=== PATIENT | female | born 1985 | race Native Hawaiian/Other Pacific Islander ===

== ENCOUNTER 2020-05-01 10:32 | Emergency (ER) | payer OTHER, SELFPAY ==
[2020-05-01] VITALS (9 sets, daily range): BP systolic 132–180; BP diastolic 77–118; PULSE 80–112; RESP 18; TEMP 36.4; O2SAT 39–100; BMI 25.4
--- NOTE | 2020-05-01 12:09 | ED.DENTAL ---
HPI - Dental/Oral <EVERTON Thomson - Last Filed: 05/01/20 14:36> General Chief complaint: Dental/Oral Stated complaint: swollen right jaw/cheek Time Seen by Provider: 05/01/20 11:34 Source: patient Mode of arrival: Ambulatory Limitations: no limitations History of Present Illness HPI Narrative: This is a 34 year female, nonsmoker, who denies chronic medical condition presents to ED with chief complain of right jawline swelling and pain which started this yesterday. Patient reports difficulty opening her mouth due to pain and eating. She reports subjective fever burning and sweaty last night and had taken Tylenol for this. Patient denies difficulty breathing or swallowing, sore throat, dental pain, ear pain, drainage from mouth, dental caries. Patient remembers had mom's during elementary school. Patient's primary care physician is located in [facility] and does not have dentist at this time since she moved to the area recently. Related Data Previous Rx's Medication Instructions Recorded cephalexin [Keflex] 500 mg PO Q6H 7 Days #28 cap 05/01/20 Allergies Allergy/AdvReac Type Severity Reaction Status Date / Time No Known Drug Allergies Allergy Verified 05/01/20 13:43 Review of Systems <EVERTON Thomson - Last Filed: 05/01/20 14:36> Review of Systems Narrative: General: See HPI HEENT: See HPI Respiratory: Denies dyspnea, cough, wheezing, hemoptysis, sputum. Cardiovascular: Denies chest pain, palpitations, orthopnea, edema. Gastrointestinal: Denies nausea, vomiting, abdominal pain, diarrhea, constipation, melena. : Denies dysuria, frequency, incontinence, hematuria, urinary retention. Musculoskeletal: Denies weakness, joint pain or bony pain. Skin: Denies rash, skin lesions, or other. Neurologic: Denies weakness, headache, numbness, change in speech, confusion, seizures, incoordination. Psychiatric: No concerning psychosocial issues. 12-point review of systems is negative except for those stated above. Patient History <EVERTON Thomson - Last Filed: 05/01/20 14:36> Surgical History History of (Acute) Social History Smoking Status: Never smoker Smoking Status: Never smoker alcohol intake frequency: 0-2 drinks per day Exam <EVERTON Thomson - Last Filed: 05/01/20 14:36> Narrative Exam Narrative: GEN: Alert, oriented x 3, well nourished, and in no acute distress. Head: Normal cephalic, atraumatic. No scalp or temporal tenderness, palpable mass or rash. EYES: Pupils are equal, round, and reactive to light and accommodation. Extraocular muscles are intact bilaterally. There is no subconjunctival hemorrhage, exudate and sclera non-icteric. ENT: Bilateral auditory canals and tympanic membranes clear. Hearing grossly intact. Nose without bleeding, purulent discharge or deviation. Right side face swelling with warmth to palpate. Mucous membrane moist, no mucosal lesion. Throat without erythema, tonsillar hypertrophy or exudate. Uvula in midline, airway patent. Neck: Trachea in midline. No JVD, non-tender. Right anterior cervical lymph nodes swelling. No thyroid megaly. Supple, non-tender and no meningeal signs but reports pain in right-sided neck with rotation of her neck. CARDIAC: Normal regular rate and rhythm without murmurs, gallops, or rubs. No chest wall tenderness. No peripheral edema, cyanosis or pallor. Capillary refill is less than 2 seconds. RESPIRATORY: Lungs are clear to auscultate bilaterally. No cough, wheezes, rales, or rhonchi. No stridor, respiratory distress, increase work of breathing, or accessary muscle used. ABD: Abdomen soft, nontender and non-distended. No guarding or rebound tenderness to palpate. Bowel sounds are normal in all 4 quadrants. There is no palpable masses or organomegaly. EXT: Full painless ROM of all extremities with no loss of sensation, strength, effusion or edema. SKIN: Warm, dry, normal color for patient. No erythema, lesions or rash over visible areas. BACK: Nontender without deformity or crepitance. No flank tenderness. NEUROLOGICAL: Alert and oriented to place, time and person. Sensation and motor function intact bilaterally. No facial droops, dysphasia. PSYCHIATRIC: Good judgement and reason, without hallucinations, abnormal affect or abnormal behaviors during the examination. Patient is not suicidal. Initial Vital Signs Initial Vital Signs: Vital Signs Temperature 97.6 F 05/01/20 10:40 Pulse Rate 112 H 05/01/20 10:40 Respiratory Rate 18 05/01/20 10:40 Blood Pressure 180/118 H 05/01/20 10:40 Pulse Oximetry 98 05/01/20 10:40 <Aurora Orellana DO - Last Filed: 05/02/20 07:27> Initial Vital Signs Initial Vital Signs: Vital Signs Temperature 97.6 F 05/01/20 10:40 Pulse Rate 112 H 05/01/20 10:40 Respiratory Rate 18 05/01/20 10:40 Blood Pressure 180/118 H 05/01/20 10:40 Pulse Oximetry 98 05/01/20 10:40 Scores <EVERTON Thomson - Last Filed: 05/01/20 14:36> qSOFA Altered Mental Status (GCS <15): No Respiratory rate greater than/equal to 22: No Systolic blood pressure less than or equal to 100: No qSOFA Total: 0 0-1 Not High Risk 1-3 High risk Course <EVERTON Thomson - Last Filed: 05/01/20 14:36> Orders Ordered: Discontinued Medications Cephalexin HCl (Keflex) 500 mg PO NOW ONE Stop: 05/01/20 13:59 Last Admin: 05/01/20 14:51 Dose: 500 mg Documented by: CECELIA Sodium Chloride (Normal Saline 0.9%) 500 mls @ 1,000 mls/hr IV BOLUS ONE Stop: 05/01/20 13:02 Last Infusion: 05/01/20 14:40 Dose: 0 mls/hr Documented by: Admin: 05/01/20 13:54 Dose: 1,000 mls/hr Documented by: CECELIA Ketorolac Tromethamine (Toradol) 15 mg IV NOW ONE Stop: 05/01/20 12:34 Last Admin: 05/01/20 13:54 Dose: 15 mg Documented by: CECELIA Consultations Consultation #1: Radiologist called to inform Right parotid gland non-specific inflammation w/o stones or abcess with bilateral lymph nodes swelling. Time: 13:54 Vital Signs Vital signs: Vital Signs - 8 hr 05/01/20 10:40 05/01/20 10:58 05/01/20 11:58 Temperature 97.6 F Pulse Rate 112 H Respiratory Rate 18 Blood Pressure 180/118 H 164/87 H Pulse Oximetry 98 60 L 100 05/01/20 11:59 05/01/20 13:02 05/01/20 13:48 Temperature Pulse Rate 87 80 Respiratory Rate 18 Blood Pressure 164/87 H 137/84 Pulse Oximetry 100 89 L 39 L 05/01/20 13:49 Temperature Pulse Rate 84 Respiratory Rate Blood Pressure 166/89 H Pulse Oximetry 86 L <Aurora Orellana DO - Last Filed: 05/02/20 07:27> Orders Ordered: Discontinued Medications Cephalexin HCl (Keflex) 500 mg PO NOW ONE Stop: 05/01/20 13:59 Last Admin: 05/01/20 14:51 Dose: 500 mg Documented by: CECELIA Sodium Chloride (Normal Saline 0.9%) 500 mls @ 1,000 mls/hr IV BOLUS ONE Stop: 05/01/20 13:02 Last Infusion: 05/01/20 14:40 Dose: 0 mls/hr Documented by: Admin: 05/01/20 13:54 Dose: 1,000 mls/hr Documented by: CECELIA Ketorolac Tromethamine (Toradol) 15 mg IV NOW ONE Stop: 05/01/20 12:34 Last Admin: 05/01/20 13:54 Dose: 15 mg Documented by: CECELIA Vital Signs Vital signs: Vital Signs - 8 hr 05/01/20 10:40 05/01/20 10:58 05/01/20 11:58 Temperature 97.6 F Pulse Rate 112 H Respiratory Rate 18 Blood Pressure 180/118 H 164/87 H Pulse Oximetry 98 60 L 100 05/01/20 11:59 05/01/20 13:02 05/01/20 13:48 Temperature Pulse Rate 87 80 Respiratory Rate 18 Blood Pressure 164/87 H 137/84 Pulse Oximetry 100 89 L 39 L 05/01/20 13:49 Temperature Pulse Rate 84 Respiratory Rate Blood Pressure 166/89 H Pulse Oximetry 86 L MDM - Dental/Oral <EVERTON Thomson - Last Filed: 05/01/20 14:36> Differential Diagnosis Differential diagnosis: Likely dental caries, dental abscess and other (sialoadenitis, salivary gland stone, salivary gland abscess) Medical Records Attestation: I reviewed the patient's medical records. Lab Data Attestation: I reviewed the patient's lab results. Result diagrams: 05/01/20 13:00 05/01/20 13:00 Labs: Lab Results 05/01/20 05/01/20 05/01/20 Range/Units 13:00 13:00 13:00 WBC 14.1 H (4.5-11.0) X10^3/uL RBC 4.33 (4.0-5.2) X10^6/uL Hgb 13.0 (12.0-16.0) g/dL Hct 38.3 (36-46) % MCV 88.5 (80-100) fL MCH 30.0 (26-34) PG MCHC 33.9 (30-36) % RDW 12.6 (11.6-14.8) % Plt Count 308 (150-400) X10^3/uL Neut % (Auto) 74.4 (50-75) % Lymph % (Auto) 16.4 L (25-40) % Chilton % (Auto) 8.5 (3-14) % Eos % (Auto) 0.3 L (2-4) % Baso % (Auto) 0.4 (0-2) % Neut # (Auto) 36213 H (3949-9479) /uL Lymph # (Auto) 2300 (3575-6728) /uL [place]ilton # (Auto) 1200 H (0-900) /uL Eos # (Auto) 0 (0-450) /uL Baso # (Auto) 100 (0-100) /uL Sodium 135 L (137-145) mmol/L Potassium 4.0 (3.4-5.1) mmol/L Chloride 101 (98-107) mmol/L Carbon Dioxide 28 (22-32) mmol/L BUN 7 (7-17) mg/dL Creatinine 0.53 (0.52-1.04) mg/dL Estimated GFR > 60.0 (>60) mL/min BUN/Creatinine Ratio 13.2 (6-22) Glucose 80 (70-100) mg/dL Lactate (0.7-2.1) mmol/L Calcium 9.1 (8.4-10.2) mg/dL Procalcitonin < 0.05 (<0.5) ng/mL 07/17/20 Range/Units 13:00 WBC (4.5-11.0) X10^3/uL RBC (4.0-5.2) X10^6/uL Hgb (12.0-16.0) g/dL Hct (36-46) % MCV (80-100) fL MCH (26-34) PG MCHC (30-36) % RDW (11.6-14.8) % Plt Count (150-400) X10^3/uL Neut % (Auto) (50-75) % Lymph % (Auto) (25-40) % Chilton % (Auto) (3-14) % Eos % (Auto) (2-4) % Baso % (Auto) (0-2) % Neut # (Auto) (8382-4797) /uL Lymph # (Auto) (2331-4198) /uL Chilton # (Auto) (0-900) /uL Eos # (Auto) (0-450) /uL Baso # (Auto) (0-100) /uL Sodium (137-145) mmol/L Potassium (3.4-5.1) mmol/L Chloride (98-107) mmol/L Carbon Dioxide (22-32) mmol/L BUN (7-17) mg/dL Creatinine (0.52-1.04) mg/dL Estimated GFR (>60) mL/min BUN/Creatinine Ratio (6-22) Glucose (70-100) mg/dL Lactate 1.2 (0.7-2.1) mmol/L Calcium (8.4-10.2) mg/dL Procalcitonin (<0.5) ng/mL Imaging Data CT- Facial soft tissue: Radiologist's Impression: [address] [address] [address] Scan Report Signed Patient: Eileen Griffith [facility]#: [id number] : 1985Acct:[id number] Age/Sex: 34 / FDate of Service: 05/01/20 Loc: ED Accession Number: [id number] Procedure: CT soft tissue neck w con Ordering Provider: Richard Betancourt PROCEDURE: CT SOFT TISSUE NECK W CON INDICATIONS: Right face swelling, salivary gland stone, infection? TECHNIQUE: After the administration of intravenous contrast, 3.0 mm axial sections acquired from the sella to the aortic arch. Additional oblique axial 3.0 mm sections acquired through the pharynx. 3 mm thick coronal and sagittal reformats were generated. For radiation dose reduction, the following was used: automated exposure control. COMPARISON: None. FINDINGS: Image quality: Excellent. Lymph nodes: Enlarged bilateral level 2 neck lymph nodes are noted with largest right node measuring 1.3 centimeters and largest left node measuring 1.1 centimeters. Prominent bilateral level 1 and level 3 lymph nodes are noted which do not meet pathologic size criteria. Vessels: Visualized vasculature appears patent. Neck spaces: The oropharynx, nasopharynx, and pharynx demonstrate no mucosal lesions. The vocal cords, false vocal cords, pyriform sinuses, epiglottis, vallecula, and tongue base all appear normal. Extramucosal spaces appear unremarkable. Glands: Right parotid gland is enlarged with heterogeneous enhancement and adjacent inflammatory stranding compatible with nonspecific sialadenitis. No parotid stone are parotid duct dilatation. Left parotid gland is normal in appearance. The submandibular glands appear normal. Thyroid gland is normal. Miscellaneous: Visualized brain and orbits appear normal. Lung apices appear clear. Superficial soft tissues appear normal. Bones: No suspicious bony lesions. Visualized sinuses and mastoids appear unremarkable. IMPRESSION: 1. Nonspecific right parotid sialoadenitis. 2. Bilateral level II neck lymphadenopathy which could be reactive or neoplastic. 3. No abscess. Dictated by: Kamla Cadet MD, PhD on 05/01/2020 at 13:48 Approved by: Kamla Cadet MD, PhD on 05/01/2020 at 14:[address] [facility] Narrative Medical decision making narrative: This is a 34 year female who presents to ED with right right-sided face swelling and pain in jaw area and subjective fever since yesterday. Dental exam was within normal without obvious cavities. Mildly elevated white count of 14.1 [place] [address]. Normal lactate and procalcitonin. Slight hyponatremia 135 and patient was treated with normal saline 500 mL. Pain was managed with IV Toradol. CT test of soft tissue of face to rule out abscess for abscess or paratoid gland stones. CT indicates non specific right paratoid sialoadnitis without abscess or stones. Also noted bilateral neck II lymphadenopathy which could be reactive or neoplastic. Findings were discussed with patient and patient advised to follow-up with primary care physician if lymphadenopathy is not improving after paratoid sialoadenitis for further evaluation. Patient was treated with 1st dose of Keflex 500 mg while in ED and discharged to home with remaining 7 day course for QID dose. Return precautions were discussed with patient and advised to follow up with primary care physician next 2-3 days. Work off note provided as requested. Patient verbalized understanding in agreement with treatment plan. <Aurora Orellana, DO - Last Filed: 05/02/20 07:27> Lab Data Labs: Lab Results 05/01/20 05/01/20 05/01/20 Range/Units 13:00 13:00 13:00 WBC 14.1 H (4.5-11.0) X10^3/uL RBC 4.33 (4.0-5.2) X10^6/uL Hgb 13.0 (12.0-16.0) g/dL Hct 38.3 (36-46) % MCV 88.5 (80-100) fL MCH 30.0 (26-34) PG MCHC 33.9 (30-36) % RDW 12.6 (11.6-14.8) % Plt Count 308 (150-400) X10^3/uL Neut % (Auto) 74.4 (50-75) % Lymph % (Auto) 16.4 L (25-40) % Chilton % (Auto) 8.5 (3-14) % Eos % (Auto) 0.3 L (2-4) % Baso % (Auto) 0.4 (0-2) % Neut # (Auto) 50710 H (1949-5565) /uL Lymph # (Auto) 2300 (4256-6506) /uL Chilton # (Auto) 1200 H (0-900) /uL Eos # (Auto) 0 (0-450) /uL Baso # (Auto) 100 (0-100) /uL Sodium 135 L (137-145) mmol/L Potassium 4.0 (3.4-5.1) mmol/L Chloride 101 (98-107) mmol/L Carbon Dioxide 28 (22-32) mmol/L BUN 7 (7-17) mg/dL Creatinine 0.53 (0.52-1.04) mg/dL Estimated GFR > 60.0 (>60) mL/min BUN/Creatinine Ratio 13.2 (6-22) Glucose 80 (70-100) mg/dL Lactate (0.7-2.1) mmol/L Calcium 9.1 (8.4-10.2) mg/dL Procalcitonin < 0.05 (<0.5) ng/mL 05/01/20 Range/Units 13:00 WBC (4.5-11.0) X10^3/uL RBC (4.0-5.2) X10^6/uL Hgb (12.0-16.0) g/dL Hct (36-46) % MCV (80-100) fL MCH (26-34) PG MCHC (30-36) % RDW (11.6-14.8) % Plt Count (150-400) X10^3/uL Neut % (Auto) (50-75) % Lymph % (Auto) (25-40) % Chilton % (Auto) (3-14) % Eos % (Auto) (2-4) % Baso % (Auto) (0-2) % Neut # (Auto) (5905-6505) /uL Lymph # (Auto) (9698-6907) /uL Chilton # (Auto) (0-900) /uL Eos # (Auto) (0-450) /uL Baso # (Auto) (0-100) /uL Sodium (137-145) mmol/L Potassium (3.4-5.1) mmol/L Chloride (98-107) mmol/L Carbon Dioxide (22-32) mmol/L BUN (7-17) mg/dL Creatinine (0.52-1.04) mg/dL Estimated GFR (>60) mL/min BUN/Creatinine Ratio (6-22) Glucose (70-100) mg/dL Lactate 1.2 (0.7-2.1) mmol/L Calcium (8.4-10.2) mg/dL Procalcitonin (<0.5) ng/mL Discharge Plan Departure Patient Disposition: Home Clinical Impression: Acute sialoadenitis Discharge Date/Time: 05/01/20 14:57 Instructions: DI for Parotitis-Adult Activity Restrictions/Additional Instructions: You have been diagnosed with [right paratoid gland inflammation. Per CT test, no indications for stones or abscess. Also bilateral neck lymphadenopathy which could be reactive. Follow-up with her primary care physician if this does not improve for further evaluation. Mildly elevated white count of 14. No elevation in lactate or procalcitonin. You were medicated with IV fluid and Toradol and 1st dose of Keflex while in ED.]. What to do: *Take your medications as directed. Please complete a course of antibiotic medication Keflex 4 times a day for next 7 days. Please take [id number] Motrin/Aleve for pain and swelling. Also, you can take [id number] Tylenol in addition. You can use warm pack on affected site several times a day. *Follow up with your primary care provider in 2-3 days, call for an appointment. Let them know you were seen in the ED and that we asked you to be seen in follow up. *Return to ED if you have any new, worsening, or concerning symptoms, such as [chest pain, breathing difficulty, unable to tolerate fluids, not improving as expected next 2-3 days, or any acute concerns]. Prescriptions: New cephalexin [Keflex] 500 mg capsule 500 mg PO Q6H 7 Days Qty: 28 RF: 0 Referrals: [facility] [Outside] Stand Alone Forms: Work Release Note <Aurora Orellana, DO - Last Filed: 05/02/20 07:27> Cosign ED Attending Maggieature Attestation: I was immediately available in the department for consultation. Documentation has been reviewed. I agree with assessment and plan.
--- NOTE | 2020-05-01 12:49 | PC.NURSE ---
Two unsuccessful IV attempts. Another Rn notified and is attempting.
[2020-05-01 13:15] LABS: Add Manual Diff / Slide Review NO; Basophils Absolute Auto 100 /uL (0-100); Basophils Percent Auto 0.4 % (0-2); Eosinophils Absolute Auto 0 /uL (0-450); Eosinophils Percent Auto 0.3 % (2-4); Hematocrit 38.3 % (36-46); Lymphocytes Absolute Auto 2300 /uL (1100-4500); Lymphocytes Percent Auto 16.4 % (25-40); Mean Corpuscular HGB Conc 33.9 % (30-36); Mean Corpuscular Volume 88.5 fL (80-100); Monocytes Absolute Auto 1200 /uL (0-900); Monocytes Percent Auto 8.5 % (3-14); Neutrophils Absolute Auto 10500 /uL (1500-7000); Neutrophils Percent Auto 74.4 % (50-75); Platelet Count 308 X10^3/uL (150-400); Red Blood Cell Count 4.33 X10^6/uL (4.0-5.2); Red Cell Distribution Width 12.6 % (11.6-14.8); White Blood Cell Count 14.1 X10^3/uL (4.5-11.0)
[2020-05-01 13:20] LABS: BUN Creatinine Ratio 13.2 (6-22); Blood Urea Nitrogen 7 mg/dL (7-17); Calcium 9.1 mg/dL (8.4-10.2); Carbon Dioxide 28 mmol/L (22-32); Chloride 101 mmol/L (98-107); Estimated Glomerular Filt Rate > 60.0 mL/min (>60); Glucose 80 mg/dL (70-100); HEMOLYSIS < 15 (0-50); Lactate (Lactic Acid) 1.2 mmol/L (0.7-2.1); Sodium 135 mmol/L (137-145)
--- NOTE | 2020-05-01 13:22 | DI.CT.S_ITS ---
PROCEDURE: CT SOFT TISSUE NECK W CON INDICATIONS: Right face swelling, salivary gland stone, infection? TECHNIQUE: After the administration of intravenous contrast, 3.0 mm axial sections acquired from the sella to the aortic arch. Additional oblique axial 3.0 mm sections acquired through the pharynx. 3 mm thick coronal and sagittal reformats were generated. For radiation dose reduction, the following was used: automated exposure control. COMPARISON: None. FINDINGS: Image quality: Excellent. Lymph nodes: Enlarged bilateral level 2 neck lymph nodes are noted with largest right node measuring 1.3 centimeters and largest left node measuring 1.1 centimeters. Prominent bilateral level 1 and level 3 lymph nodes are noted which do not meet pathologic size criteria. Vessels: Visualized vasculature appears patent. Neck spaces: The oropharynx, nasopharynx, and pharynx demonstrate no mucosal lesions. The vocal cords, false vocal cords, pyriform sinuses, epiglottis, vallecula, and tongue base all appear normal. Extramucosal spaces appear unremarkable. Glands: Right parotid gland is enlarged with heterogeneous enhancement and adjacent inflammatory stranding compatible with nonspecific sialadenitis. No parotid stone are parotid duct dilatation. Left parotid gland is normal in appearance. The submandibular glands appear normal. Thyroid gland is normal. Miscellaneous: Visualized brain and orbits appear normal. Lung apices appear clear. Superficial soft tissues appear normal. Bones: No suspicious bony lesions. Visualized sinuses and mastoids appear unremarkable. IMPRESSION: 1. Nonspecific right parotid sialoadenitis. 2. Bilateral level II neck lymphadenopathy which could be reactive or neoplastic. 3. No abscess. Dictated by: Kamla Cadet MD, PhD on 05/01/2020 at 13:48 Approved by: Kamla Cadet MD, PhD on 05/01/2020 at 14:01
[2020-05-01 13:44] LABS: Procalcitonin < 0.05 ng/mL (<0.5)
[2020-05-01] MEDS: SODIUM CHLORIDE 0.9% 500 ML 1000 ML IV (13:54)
[2020-05-01] MEDS: KETOROLAC 60 MG/2 ML VIAL 15 MG IV (13:54)
[2020-05-01] MEDS: cephALEXin 250 MG CAPSULE 500 MG PO (14:51)
== END 2020-05-01 14:57 | disposition home or self-care (01) ==
PROVIDERS: Emergency Provider Nurse Practitioner Family
DX: K11.21 Acute sialoadenitis (principal); R50.9 Fever, unspecified; R79.89 Other specified abnormal findings of blood chemistry
CPT/HCPCS: 36415; 70491; 80048; 83605; 84145; 85025; 96361; 96374; 99284; J1885; Q9967

== ENCOUNTER → 2021-04-27 14:17 | Outpatient (CLI) | payer OTHER, SELFPAY ==
[2021-04-27 15:00] LABS: Add Manual Diff / Slide Review NO; Basophils Absolute Auto 0 /uL (0-100); Basophils Percent Auto 0.3 % (0-2); Eosinophils Absolute Auto 100 /uL (0-450); Eosinophils Percent Auto 0.9 % (2-4); Hematocrit 34.1 % (36-46); Hemoglobin 11.3 g/dL (12.0-16.0); Lymphocytes Absolute Auto 1700 /uL (1100-4500); Mean Corpuscular HGB Conc 33.1 % (30-36); Mean Corpuscular Hemoglobin 29.8 PG (26-34); Mean Corpuscular Volume 89.8 fL (80-100); Monocytes Absolute Auto 600 /uL (0-900); Monocytes Percent Auto 8.9 % (3-14); Neutrophils Absolute Auto 4000 /uL (1500-7000); Neutrophils Percent Auto 62.9 % (50-75); Platelet Count 281 X10^3/uL (150-400); Red Cell Distribution Width 13.1 % (11.6-14.8); White Blood Cell Count 6.3 X10^3/uL (4.5-11.0)
[2021-04-27 15:54] LABS: Appearance Urine UA CLEAR; Bilirubin Urine UA NEGATIVE (NEGATIVE); Color Urine UA YELLOW; Glucose Urine UA NEGATIVE (Negative); Ketones Urine UA NEGATIVE (NEGATIVE); Leukocyte Esterase Urine UA 1+ (NEGATIVE); Nitrite Urine UA NEGATIVE (Negative); Occult Blood Urine UA TRACE-LYSED (Negative); Protein Urine UA NEGATIVE (Negative); Specific Gravity Urine UA <=1.005 (1.000-1.035); Urobilinogen Urine UA 0.2 E.U./dL (0.2)
[2021-04-27 16:21] LABS: RBC Urine 1-5/HPF (0-5/HPF); Squamous Epithelial Cell Urine 5-10 /HPF (0-5/HPF); WBC Urine 5-10/HPF (0-5/HPF)
[2021-04-27 16:22] LABS: Amorphous Sediment Urine 1+; Bacteria Urine Moderate (10-30); Culture Indicated Urine Cult Not Indicated; Transitional Epi Cells Urine 1-5/HPF (0-5/HPF)
[2021-04-28 05:21] LABS: Varicella IgG Antibody 1100 index (Immune >165)
[2021-04-28 05:42] LABS: RPR Screen Non Reactive (Non Reactive)
[2021-04-29 16:27] LABS: Hepatitis B Surface Antigen NEGATIVE s/c (NEGATIVE); Rubella Antibody IgG 44.1 IU/mL (>15)
[2021-04-29 16:46] LABS: HIV 1 & 2 Ab/Ag 4th Gen Combo NEGATIVE (NEGATIVE); Hep C Virus Ab w/Reflex Quant NEGATIVE s/c (NEGATIVE)
== END ==
PROVIDERS: Referring Provider Obstetrics & Gynecology; Visit Provider Obstetrics & Gynecology
DX: Z34.81 Encounter for supervision of other normal pregnancy, first trimester (principal); Z36.0 Encounter for antenatal screening for chromosomal anomalies
CPT/HCPCS: 36415; 80055; 81003; 81015; 81420; 86787; 86803; 86850; 86900; 86901; 87086; 87389

== ENCOUNTER → 2021-06-01 16:56 | Outpatient (CLI) | payer OTHER, SELFPAY ==
[2021-06-03 18:18] LABS: AFP Value 76.6 ng/mL (.); Gest Age on Col Date 18.7 weeks (.); Insulin Dep Diabetes No (.); OSBR Risk 1IN 2155 (.); Results Report (.); Test Results *Screen Negative* (.)
== END ==
PROVIDERS: Referring Provider Obstetrics & Gynecology; Visit Provider Obstetrics & Gynecology
DX: Z34.82 Encounter for supervision of other normal pregnancy, second trimester (principal); Z3A.18 18 weeks gestation of pregnancy
CPT/HCPCS: 36415; 82105

== ENCOUNTER → 2021-06-18 08:49 | Outpatient (CLI) | payer OTHER, SELFPAY ==
--- NOTE | 2021-06-18 08:51 | DI.US.S_ITS ---
PROCEDURE: US OB >= 14 WEEKS FETUS INDICATIONS: ANATOMY OUTSIDE/PRIOR DATING DATA: Last menstrual period (LMP): 01/21/2021. LMP-based estimated date of delivery (JAZZY): 10/28/2021 . First dating scan (date and location): 03/25/2021 . Estimated date of delivery (JAZZY) from first dating scan: 10/27/2021 . TECHNIQUE: Real-time scanning was performed of the fetus, with image documentation and biometric measurements. Endovaginal scanning: No COMPARISON: [facility], , OB <= 14 WEEKS FETUS, 04/27/2021, 14:12. FINDINGS: General: A single living intrauterine gestation is present. Presentation: Vertex. Placenta: Placental position is anterior , without previa. Amniotic fluid index: 21.6 cm, normal range is 5-24 cm. heart rate: 145 beats per minute. Maternal cervical canal: 4.3 cm long. Normal lower limit is 2.5 cm. biometrics: Biparietal diameter: 21 weeks 4 days Head circumference: 21 weeks 4 days Abdominal circumference: 21 weeks 3 days Femur length: 21 weeks Estimated gestational age from initial scan: 21 weeks 2 days Composite gestational age from present scan: 21 weeks 3 days Estimated weight and percentile: 411 g; 43rd percentile Measurement variability for biometric dating: +/- 7 days from 14 weeks to 15 weeks 6 days gestation, +/- 10 days from 16 weeks to 21 weeks 6 days gestation, +/- 2 weeks from 22 weeks to 27 weeks 6 days gestation, +/- 3 weeks for 28 weeks gestation or later. weight reference: 4500 g or EFW >90/95% is considered macrosomia or large for gestational age. EFW <10% is small for gestational age. EFW 5% or less is considered intra-uterine growth restriction. Anatomic survey: Neuro: Ventricles are non-dilated at less than 10 mm. Cisterna magna is normal at 3-11 mm. Cerebellum is normal in size and morphology. Nuchal skin fold: Normal at less than 6 mm between 14-21 weeks gestational age. . Follow-up recommended. Face: Nose and lips, facial profile are normal. Spine: Not well seen. Heart: 4-chambered heart is present, with normal ventricular outflow tracts. Diaphragm: Diaphragm is intact. Stomach: Left-sided stomach is present. Kidneys: No hydronephrosis. Normal is less than 5 mm in 2nd trimester, less than 7 mm in 3rd trimester. Cord: 3-vessel cord has orthotopic insertion. Bladder: Normal in size. Extremities: All 4 extremities identified. IMPRESSION: 1. Normal interval growth. 2. spine not well visualized; otherwise normal anatomy Dictated by: Jaswinder Sterling [facility] Interpreted: Nicko Robbins MD on 06/18/2021 at 17:04 Transcribed by: NORA on 06/18/2021 at 17:05 Approved by: Nicko Robbins M.D. on 06/18/2021 at 17:55
== END ==
PROVIDERS: PCP Obstetrics & Gynecology; Referring Provider Obstetrics & Gynecology; Visit Provider Obstetrics & Gynecology
DX: Z34.82 Encounter for supervision of other normal pregnancy, second trimester (principal); Z3A.21 21 weeks gestation of pregnancy
CPT/HCPCS: 76811

== ENCOUNTER → 2021-07-14 10:37 | Outpatient (CLI) | payer OTHER, SELFPAY ==
[2021-07-14 16:31] LABS: Urine N gonorrhoeae NOT DETECTED
[2021-07-14 16:33] LABS: Urine Chlamydia NOT DETECTED
== END ==
PROVIDERS: PCP Obstetrics & Gynecology; Visit Provider Obstetrics & Gynecology
DX: Z34.82 Encounter for supervision of other normal pregnancy, second trimester (principal); Z3A.24 24 weeks gestation of pregnancy
CPT/HCPCS: 87491; 87591

== ENCOUNTER → 2021-07-14 11:26 | Outpatient (CLI) | payer OTHER, SELFPAY ==
[2021-07-14 13:53] LABS: Hematocrit 33.4 % (36-46); Hemoglobin 11.1 g/dL (12.0-16.0)
[2021-07-14 14:16] LABS: GTT (PREG) 1 Hour PP 50gm Dose 129 mg/dL (76-139)
== END ==
PROVIDERS: PCP Obstetrics & Gynecology; Referring Provider Obstetrics & Gynecology; Visit Provider Obstetrics & Gynecology
DX: Z34.82 Encounter for supervision of other normal pregnancy, second trimester (principal); Z3A.26 26 weeks gestation of pregnancy
CPT/HCPCS: 36415; 82950; 85014; 85018; 87491; 87591

== ENCOUNTER → 2021-08-30 09:48 | Outpatient (CLI) | payer OTHER, SELFPAY ==
[2021-08-30 10:09] LABS: COVID19 -Nasal RAPID Negative (Negative)
== END ==
PROVIDERS: PCP Obstetrics & Gynecology; Referring Provider Obstetrics & Gynecology; Visit Provider Obstetrics & Gynecology
DX: Z34.83 Encounter for supervision of other normal pregnancy, third trimester (principal); R05.9 Cough, unspecified
CPT/HCPCS: 87635

== ENCOUNTER → 2021-09-30 16:49 | Outpatient (CLI) | payer OTHER, SELFPAY ==
[2021-09-30 17:42] LABS: COVID19 -Nasal RAPID Negative (Negative)
[2021-10-01 12:49] LABS: Strep Grp B PCR NEG for Grp B Strep
== END ==
PROVIDERS: PCP Obstetrics & Gynecology; Visit Provider Obstetrics & Gynecology
DX: Z34.83 Encounter for supervision of other normal pregnancy, third trimester (principal); Z20.822 Contact with and (suspected) exposure to COVID-19; Z3A.36 36 weeks gestation of pregnancy
CPT/HCPCS: 87635; 87653

== ENCOUNTER 2021-09-30 17:00 | Observation (INO) | payer OTHER, SELFPAY ==
[2021-09-30 18:57] LABS: Add Manual Diff / Slide Review NO; Basophils Absolute Auto 0 /uL (0-100); Basophils Percent Auto 0.4 % (0-2); Eosinophils Absolute Auto 100 /uL (0-450); Eosinophils Percent Auto 1.1 % (2-4); Hematocrit 33.8 % (36-46); Hemoglobin 11.6 g/dL (12.0-16.0); Lymphocytes Absolute Auto 1500 /uL (1100-4500); Lymphocytes Percent Auto 28.1 % (25-40); Mean Corpuscular HGB Conc 34.4 % (30-36); Mean Corpuscular Hemoglobin 31.2 PG (26-34); Mean Corpuscular Volume 90.8 fL (80-100); Monocytes Absolute Auto 600 /uL (0-900); Monocytes Percent Auto 10.8 % (3-14); Neutrophils Absolute Auto 3200 /uL (1500-7000); Neutrophils Percent Auto 59.6 % (50-75); Platelet Count 221 X10^3/uL (150-400); Red Blood Cell Count 3.73 X10^6/uL (4.0-5.2); Red Cell Distribution Width 13.6 % (11.6-14.8); White Blood Cell Count 5.3 X10^3/uL (4.5-11.0)
[2021-09-30 19:07] LABS: Aspartate Aminotransferase 41 IU/L (14-36); BUN Creatinine Ratio 22.2 (6-22); Blood Urea Nitrogen 12 mg/dL (7-17); Estimated Glomerular Filt Rate > 60.0 mL/min (>60); Uric Acid 7.7 mg/dL (2.5-6.2)
[2021-09-30 19:12] LABS: Creatinine Urine Random 84.7 mg/dL; Protein (Total) Urine Random 17 mg/dL (0-12)
== END 2021-09-30 19:35 | disposition home or self-care (01) ==
PROVIDERS: Admitting Provider Obstetrics & Gynecology; PCP Obstetrics & Gynecology; Referring Provider Obstetrics & Gynecology; Visit Provider Obstetrics & Gynecology
DX: O26.893 Other specified pregnancy related conditions, third trimester (principal); Z20.822 Contact with and (suspected) exposure to COVID-19; Z3A.36 36 weeks gestation of pregnancy; R03.0 Elevated blood-pressure reading, without diagnosis of hypertension
CPT/HCPCS: 36415; 59025; 82570; 84156; 84450; 84550; 85025; 87635; 87653; G0378; G0379

== ENCOUNTER 2021-10-04 11:49 | Observation (INO) | payer OTHER, SELFPAY ==
[2021-10-04 13:07] LABS: Add Manual Diff / Slide Review NO; Basophils Absolute Auto 0 /uL (0-100); Basophils Percent Auto 0.5 % (0-2); Eosinophils Absolute Auto 100 /uL (0-450); Eosinophils Percent Auto 1.2 % (2-4); Hematocrit 34.1 % (36-46); Hemoglobin 11.6 g/dL (12.0-16.0); Lymphocytes Absolute Auto 1300 /uL (1100-4500); Lymphocytes Percent Auto 24.6 % (25-40); Mean Corpuscular HGB Conc 34.1 % (30-36); Mean Corpuscular Hemoglobin 31.2 PG (26-34); Mean Corpuscular Volume 91.4 fL (80-100); Monocytes Absolute Auto 600 /uL (0-900); Neutrophils Absolute Auto 3300 /uL (1500-7000); Neutrophils Percent Auto 62.7 % (50-75); Platelet Count 221 X10^3/uL (150-400); Red Blood Cell Count 3.73 X10^6/uL (4.0-5.2); Red Cell Distribution Width 13.8 % (11.6-14.8); White Blood Cell Count 5.3 X10^3/uL (4.5-11.0)
[2021-10-04 13:38] LABS: Aspartate Aminotransferase 43 IU/L (14-36); BUN Creatinine Ratio 16.9 (6-22); Blood Urea Nitrogen 12 mg/dL (7-17); Estimated Glomerular Filt Rate > 60.0 mL/min (>60); Uric Acid 8.2 mg/dL (2.5-6.2)
[2021-10-04 14:31] LABS: Creatinine Urine Random 39.3 mg/dL; Protein (Total) Urine Random 13 mg/dL (0-12); Protein Creatinine Ratio Urine 0.33 GRAM/24H
--- NOTE | 2021-10-10 14:39 | PM.OBDS.1 ---
Discharge Providers Provider Date of admission: 10/08/21 Discharge Date: 10/10/21 Discharge provider: Yoana Avelar MD Summary Hospital Course Date Patient Seen: 10/10/21 Time Patient Seen: 09:45 Diagnoses: 37 1/7 weeks gestation Preeclampsia Previoius C section Repeat C section Hospital Course: Patient is a 36 year old who presented on 10/08/21 for a scheduled Repeat C Section. She underwent this procedure without complication. She is discharged to home on post op Day #2. Her BP's are well controlled. She is tolerating a diet, ambulating, voiding without the catheter and her pain is well controlled. Peripartum Data Delivery Method: Section Laceration Description: None Procedures: Spinal anesthesia Repeat C section complications: none [place] 1: Gender: Female Disposition of : home Status at Discharge Cognitive/behavioral status at discharge: oriented Functional status at discharge: independent ambulation Overall status at discharge: patient is progressing back to baseline Time Spent with Patient Time attestation: Total time spent providing and/or coordinating discharge services: Time spent: Less than 30 minutes Objective Labs Result Diagrams: 10/04/21 12:58 10/04/21 12:58 Exam Narrative Exam Narrative: Generally: Walking around in room, no acute distress Lungs: CTA Bilaterally CV: Regular rate and rhythm Fundus: Firm at U-1 Incision: C/D/I with Aquacel dressing Ext: 1+ edema, negative Rosina's. Discharge Plan Discharge Plan Patient Disposition: Home Discharge orders & Medications Prescriptions: No Action prenat.vits,alvin,jpz-tdea-iqtjt Tablet 1 tab PO DAILY 0RF (DME) Double Electric Breast Pump See Rx Instructions .Route .MEDSUPPLY Qty: 1 0RF Rx Instructions: Pump with supplies oxycodone 5 mg tablet 5 mg PO Q4H PRN (Reason: pain) Qty: 30 0RF labetalol 100 mg tablet 100 mg PO BID Qty: 60 0RF Discharge Data Attending Provider: Yoana Avelar
== END 2021-10-04 14:18 | disposition home or self-care (01) ==
PROVIDERS: Admitting Provider Obstetrics & Gynecology; Referring Provider Obstetrics & Gynecology; Visit Provider Obstetrics & Gynecology
DX: O13.3 Gestational [pregnancy-induced] hypertension without significant proteinuria, third trimester (principal); Z3A.36 36 weeks gestation of pregnancy
CPT/HCPCS: 36415; 59025; 82570; 84156; 84450; 84550; 85025; G0378; G0379

== ENCOUNTER 2021-10-08 05:43 | Inpatient (IN) | payer OTHER, SELFPAY ==
[2021-10-08] VITALS (7 sets, daily range): BP systolic 131–145; BP diastolic 85–94; PULSE 67–73; RESP 19–21; TEMP 36.1–36.6; O2SAT 100
[2021-10-08] MEDS: LACTATED RINGERS 1,000 ML 100 ML IV ×3 (06:30→11:32)
[2021-10-08 06:45] LABS: COVID19 -Nasal RAPID Negative (Negative)
[2021-10-08 07:08] LABS: Add Manual Diff / Slide Review NO; Basophils Absolute Auto 0 /uL (0-100); Basophils Percent Auto 0.7 % (0-2); Eosinophils Absolute Auto 100 /uL (0-450); Eosinophils Percent Auto 1.4 % (2-4); Hematocrit 34.2 % (36-46); Hemoglobin 11.6 g/dL (12.0-16.0); Lymphocytes Absolute Auto 1900 /uL (1100-4500); Lymphocytes Percent Auto 32.1 % (25-40); Mean Corpuscular HGB Conc 33.9 % (30-36); Mean Corpuscular Volume 91.4 fL (80-100); Monocytes Absolute Auto 700 /uL (0-900); Monocytes Percent Auto 11.3 % (3-14); Neutrophils Absolute Auto 3300 /uL (1500-7000); Neutrophils Percent Auto 54.5 % (50-75); Platelet Count 230 X10^3/uL (150-400); Red Blood Cell Count 3.74 X10^6/uL (4.0-5.2)
[2021-10-08 07:12] LABS: Aspartate Aminotransferase 38 IU/L (14-36); BUN Creatinine Ratio 21.8 (6-22); Blood Urea Nitrogen 12 mg/dL (7-17); Estimated Glomerular Filt Rate > 60.0 mL/min (>60); Uric Acid 7.6 mg/dL (2.5-6.2)
[2021-10-08 07:27] LABS: Creatinine Urine Random 46.1 mg/dL; Protein (Total) Urine Random 15 mg/dL (0-12); Protein Creatinine Ratio Urine 0.32 GRAM/24H
--- NOTE | 2021-10-08 07:39 | P.HPOB_ITS ---
OB HPI Date/Time Date of admission: 10/08/21 Date Patient Seen: 10/08/21 Time Patient Seen: 07:39 History of Present Condition Chief complaint: REPEAT JAZZY Calculator Estimated Delivery Date Method Current WG Current Estimate 10/28/21 LMP (Certain) 37w 1d Other Estimates 10/27/21 Ultrasound #1 37w 2d Estimated Gestational Age (weeks): 37+1 : 2 Para: 1 care: initiated at week # (9), number of visits (8) and pounds weight gain (32) Dating criteria OB: LMP confirmed by 1st trimester US Ultrasounds: normal 1st trimester US and normal mid trimester US Obstetrical complications: preeclampsia and gestational hypertension Medical complications OB: none Indications Operative indications ( section): previous uterine surgery Preadmission Labs Last OB Lab Results: Blood Type AB Positive 04/27/21 14:24 04/27/21 Antibody Screen Negative 04/27/21 14:24 04/27/21 Hematocrit 34.2 % (36-46) L 10/08/21 07:00 10/08/21 Hemoglobin 11.6 g/dL (12.0-16.0) L 10/08/21 07:00 10/08/21 Hepatitis B Surface Antigen Negative s/c (NEGATIVE) 04/27/21 14:24 04/27/21 Hepatitis C Antibody Negative s/c (NEGATIVE) 04/27/21 14:24 04/27/21 Rubella Antibody 44.1 IU/mL (>15) 04/27/21 14:24 04/27/21 Varicella-Zoster IgG Antibody 1100 index (Immune >165) 04/27/21 14:24 04/27/21 Glucose 1 Hour 129 mg/dL (76-139) 07/14/21 12:32 07/14/21 Group B Streptococcus (PCR) Neg for grp b strep 09/30/21 17:34 09/30/21 -: Chlamydia screen: negative, Gonorrhea screen: negative and Urine: negative Genetic Screens: Cell-free DNA: Normal (female) External Labs -: Urine: negative Prior (ies) Past Pregnancies Del. Date GA/Weeks Labor Lgth Wt Sex Route Outcome Anesthesia Place Delv Breastfeed Preg Comp Name 10/07/14 38 14 5 lb Female live - full ter m epidural [place], [place] 6 mos.,pumped early days. pre-eclampsia Ethan lindquist Delivery Date: 10/07/14 Last Updated by: Thais Carranza R.N. Induced for pre-eclampsia; high BP and ORELLANA; Ram Balloon then Pitocin. To emergency C/S for distress and high maternal BP. NICU x 4 hrs, then baby was stable. Evaluation Evaluation Baseline heart rate: 125 Variability: Moderate (11-25) monitor accelerations: Present Monitor Decelerations: Absent Category of Tracing: Reactive [facility] Medical History (Updated 08/09/21 @ 08:55 by Yoana Avelar MD) Hypertension Low back pain (~2013) Neuropathic pain of right hand (~07/2020) Raynaud's disease (~2020) Surgical History (Updated 04/11/21 @ 13:09 by Yoana Avelar MD) History of Family History (Updated 03/19/21 @ 10:34 by Thais Carranza RN) Mother Rheumatoid arthritis Father Hypertension Grandmother Hypertension Grandfather Medical history unknown Grandmother Medical history unknown Grandfather Alzheimer disease Social History marital status: number of children: 1 household members: spouse and children lives independently: Yes caregiver/support person: No housing: house pets and animals: No 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 ) current occupational exposures/hazards: Yes (Some bleach, but she uses ventilation and gloves.) special jame needs: No seatbelt use: always do you feel safe at home: Yes Smoking Status: Never smoker second hand exposure: Yes ( smokes outside, sometimes she will get drafts of smoke or 3rd hand.) alcohol intake: former (Pre-: rare glass of wine. ) substance use type: does not use during the past year weight has: increased > 10 lbs well-balanced diet: about half the time daily servings fruits/ve-4 (2) caffeine: Yes (1 cup daily. 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 ) frequency: does not exercise duration: other Meds Home Medications and Allergies Home Medications Medication Instructions Recorded Confirmed Type prenat.vits,alvin,qol-tngh-wjczp 1 tab PO DAILY 03/19/21 10/08/21 History Double Electric Breast Pump #1 ea 07/14/21 10/08/21 Rx aspirin 81 mg chewable tablet 81 mg PO DAILY #90 tab 07/14/21 10/08/21 Rx Allergies Allergy/AdvReac Type Severity Reaction Status Date / Time No Known Drug Allergies Allergy Verified 09/30/21 15:56 OB Exam Narrative Exam Narrative: Generally: Patient is sitting up in bed, no acute distress Lungs: Clear to auscultation bilaterally Cardiovascular: Regular rate and rhythm Fundal height: 37 cm Estimated weight 6 lb Extremities: Trace edema Objective Labs Result Diagrams: 10/08/21 07:00 10/08/21 07:00 Labs: Laboratory Results - last 24 hr 10/08/21 10/08/21 10/08/21 06:20 06:35 07:00 WBC 6.0 RBC 3.74 L Hgb 11.6 L Hct 34.2 L MCV 91.4 MCH 31.0 MCHC 33.9 RDW 14.0 Plt Count 230 Neut % (Auto) 54.5 Lymph % (Auto) 32.1 [place] % (Auto) 11.3 Eos % (Auto) 1.4 L Baso % (Auto) 0.7 Neut # (Auto) 3300 Lymph # (Auto) 1900 [place] # (Auto) 700 Eos # (Auto) 100 Baso # (Auto) 0 BUN Creatinine Estimated GFR BUN/Creatinine Ratio Uric Acid AST U Random Total Protein 15 H Urine Creatinine 46.1 Protein/Creatinin Ratio 0.32 SARS-CoV-2 (PCR) Negative 10/08/21 07:00 WBC RBC Hgb Hct MCV MCH MCHC RDW Plt Count Neut % (Auto) Lymph % (Auto) [place] % (Auto) Eos % (Auto) Baso % (Auto) Neut # (Auto) Lymph # (Auto) [place] # (Auto) Eos # (Auto) Baso # (Auto) BUN 12 Creatinine 0.55 Estimated GFR > 60.0 BUN/Creatinine Ratio 21.8 Uric Acid 7.6 H AST 38 H U Random Total Protein Urine Creatinine Protein/Creatinin Ratio SARS-CoV-2 (PCR) Assessment and Plan Assessment and Plan Assessment and Plan narrative: Assessment: 36-year-old 2 para 1 at 37-,1/7 weeks gestation with hypertension with superimposed preeclampsia Elevated uric acid and liver function tests Previous section Plan: Repeat low-transverse section The risks, benefits, and alternatives to the procedure were explained to the patient. The risks including bleeding, infection, injury to the bowel, bladder, or ureters. She understands these risks and agrees to proceed. A full par Q was held and consent form was signed. Time Spent with Patient Total time spent with greater than 50% in coordination of care (as documented) at patient's floor/unit and/or counseling patient:: 15-24 minutes
--- NOTE | 2021-10-08 07:47 | PM.PREOP ---
Pre-operative Note COVID-19 COVID-19 status: Negative Result date/Date tested (Pos, Neg/Pending): 10/08/21 Interval Note History & Physical reviewed/Exam performed by Physician: Yes Changes to H&P: No H&P completed within 30 days and has changed as indicated here:: 10/08/21
[2021-10-08] MEDS: CEFAZOLIN 2 GM/20 ML SYRINGE IV (08:40)
--- NOTE | 2021-10-08 08:54 | SUR.OPER ---
Supine on Padded OR bed, head on pillow, safety belt at thigh, arms secured on padded arm boards at <90 degrees abduction. Bump under right buttock. Legs uncrossed with pillow under knees, gel pad to heels, tape over blanket to lower legs.
--- NOTE | 2021-10-08 09:22 | SUR.OPER ---
Viable baby girl delivered at 0901. Placenta delivered. placenta and cord blood tubes X2 given to L&D RN.
--- NOTE | 2021-10-08 09:45 | PM.OBCS.1 ---
Operative Date/Time/Diagnoses Date of procedure: 10/08/21 Time of procedure: 09:45 Pre-op diagnosis: 37+1 weeks gestation Preeclampsia Previous C section Post-op diagnosis: same Procedure & Clinicians Procedure: Repeat Low Transverse C section Same procedure as scheduled: Yes Indications: 37-1/7 weeks gestation Preeclampsia Previous section Surgeon: Yoana Avelar Click Yes if Unassisted: No Hot Blast Worker: Alea Valentine Reason for Hot Blast Worker: The retail event assistant was necessary to retract while getting into the abdomen and uterus. She assisted in delivery of the baby. She assisted with retraction and clipping of suture in closing the uterus and abdomen. Anesthesia Type: Spinal (With Duramorph) Operative Notes Findings: Live female Dense uterine to anterior abdominal wall adhesions Dense uterine to bladder adhesions Normal tubes and ovaries Closure Type: primary Specimen(s): cord blood and placenta Intraoperative meds administered: Duramorph, Ketorolac and Pitocin Applied: Catheter (To continuous drainage) Estimated Blood Loss (mL): 600 Blood products transfused: none Procedure in detail: The patient was taken to the operating room where she was placed in the seated position. Spinal anesthesia with Duramorph was administered. The patient was then placed in the dorsal supine position with a leftward tilt. She was prepped and draped in the usual sterile fashion. A timeout was performed. After spinal analgesia was found to be adequate, a Pfannenstiel skin incision was made through the previous incision and carried through to the underlying layer fascia. The fascia was nicked in the midline, and the incision extended bilaterally with the Rogers scissors. The superior aspect of the fascial incision was grasped with a [place] clamps, elevated, and the underlying rectus muscles dissected off sharply and bluntly. Attention was then turned to the inferior aspect of this incision which in a similar fashion was grasped with a Roz clamps, elevated, and the underlying rectus muscles dissected off sharply and bluntly. The rectus muscles were in the midline. Dense adhesions were encountered of the omentum and uterus stuck to the anterior abdominal wall. These were taken down carefully. The bladder was found to be adhesed to the uterus as well. This was carefully taken down sharply with Metzenbaum scissors. This incision was extended bilaterally, and the bladder flap was created digitally. The bladder blade was reinserted. The lower uterine segment was incised in a transverse fashion with the scalpel. Upon entering the amniotic sac there was moderate amount of clear amniotic fluid. The 's head was delivered with vacuum assistance. The nose and mouth were suctioned with bulb suction. The remainder of the body delivered without difficulty. The cord was double clamped and cut. The infant was handed off to waiting RN and RT. The placenta was delivered manually. The uterus was cleared of all clots and debris. The uterine incision was repaired with #1 chromic in a running interlocking fashion, and a second layer the same suture was used for an imbricating layer. Hemostasis was achieved. The tubes and ovaries were examined and were found to be normal. The gutters were cleared of all clots and debris. The bladder flap could not be reapproximatedd. The parietal peritoneum was closed using 2-0 Vicryl in a running fashion. The fascia was reapproximated using 0 Vicryl in a running fashion. The subcutaneous layer was copiously irrigated with warm normal saline. 5 simple interrupted sutures of 3-0 Vicryl were placed to reapproximate the subcutaneous layer. The skin was closed with 4-0 Monocryl in a subcuticular fashion. Steri-Strips were placed. An Aquacel dressing was placed. The uterus was expressed of a small amount of old blood. Sponge, lap, and instrument counts were correct x-2. The patient tolerated the procedure well, and was taken to PACU in stable condition. Complications: none [place] Baby 1: Gender: Female Presentation: vertex Position: Left Occiput Anterior Placental Delivery Description: Manual Removal Cord Vessel Description: 3 Vessels and Nuchal Cord (x 1) score (1 min): 8 score (5 min): 9 weight: 5 lb 10 oz Post-operative Condition: stable Disposition: PACU Aftercare: routine postop
[2021-10-08] MEDS: ACETAMINOPHEN 325 MG TABLET 650 MG PO ×2 (13:32→19:41)
[2021-10-08] MEDS: KETOROLAC 30 MG/ML VIAL IV ×2 (16:05→22:04)
[2021-10-08] MEDS: LANOLIN OINT 7 GM 1 APPLIC TOP (19:41)
[2021-10-08] MEDS: LABETALOL 100 MG TABLET PO (20:59)
[2021-10-09 01:49] VITALS: BP 114/75; PULSE 77; RESP 20; TEMP 37
[2021-10-09] MEDS: ACETAMINOPHEN 325 MG TABLET 650 MG PO ×4 (03:47→22:17)
[2021-10-09] MEDS: KETOROLAC 30 MG/ML VIAL IV (03:48)
[2021-10-09 06:00] LABS: Hematocrit 27.8 % (36-46); Hemoglobin 9.7 g/dL (12.0-16.0)
[2021-10-09] MEDS: OXYCODONE/ACETAMINOPHEN 5/325 TABLET 1 TAB PO (07:56)
[2021-10-09] MEDS: LANOLIN OINT 7 GM 1 APPLIC TOP (08:53)
[2021-10-09 08:54] VITALS: BP 116/77; PULSE 80
[2021-10-09] MEDS: LABETALOL 100 MG TABLET PO ×2 (08:54→20:44)
[2021-10-09] MEDS: DOCUSATE 100 MG CAPSULE 200 MG PO (08:55)
[2021-10-09] MEDS: IBUPROFEN 600 MG TABLET PO ×3 (08:55→22:18)
[2021-10-09] MEDS: PRENATAL VIT,CALC/IRON/FOLIC 1 TABLET 1 TAB PO (08:56)
--- NOTE | 2021-10-09 10:22 | PM.OBPN.1 ---
Subjective - OB Subjective Patient comments: no complaints, pain well controlled and tolerating diet baby status: doing well and nursing well feeding status: exclusively breast feeding Date Patient Seen: 10/09/21 Time Patient Seen: 10:23 Interval history: Patient is ambulatory. She is urinating post Ram catheter removal. Her pain is under control. She is breast-feeding. Exam Vital Signs (past 8 hours): temperature 98.6?, pulse of 80, blood pressure 111/67, maximum blood pressure 142/85- 10/09/21 08:54 Pulse Rate 80 Blood Pressure 116/77 Oxygen Delivery Method Room Air Narrative Exam Narrative: Abdomen is soft, nontender. uterus is firm, at U, nontender. Dressing is clean, dry, intact. Mild lochia. Extremities without edema and nontender. Objective Labs Result Diagrams: 10/09/21 05:35 10/08/21 07:00 Labs: Laboratory Results - last 24 hr 10/09/21 05:35 Hgb 9.7 L Hct 27.8 L Assessment & Plan Assessment and Plan (1) Status post repeat low transverse section: Status: Acute (2) Hypertension: Problem details: Non- labile BP, can be 180/120 systolic when stressed. Was not treated with medication by previous primary provider in [place]. Status: Acute Plan day: 1 plan OB: routine postop care Comments: Will continue labetalol for hypertension. Time Spent With Patient Time: Total time spent is greater than 50% in coordination of care (as documented) at patient's floor/unit and/or counseling patient: Time with patient: less than 15 minutes
[2021-10-09] MEDS: OXYCODONE IR 5 MG TABLET PO ×3 (12:51→22:17)
[2021-10-09 15:42] VITALS: TEMP 36.9
[2021-10-09 20:44] VITALS: BP 126/79; PULSE 81
[2021-10-10 04:36] VITALS: TEMP 37
[2021-10-10] MEDS: IBUPROFEN 600 MG TABLET PO ×2 (04:36→10:57)
[2021-10-10 04:37] VITALS: TEMP 37
[2021-10-10] MEDS: ACETAMINOPHEN 325 MG TABLET 650 MG PO ×3 (04:37→11:39)
[2021-10-10] MEDS: OXYCODONE IR 5 MG TABLET PO ×2 (04:37→08:29)
[2021-10-10 07:49] VITALS: BP 126/79; PULSE 81; RESP 20; TEMP 37
[2021-10-10 08:31] VITALS: BP 114/75; PULSE 77
[2021-10-10] MEDS: LABETALOL 100 MG TABLET PO (08:31)
[2021-10-10] MEDS: DOCUSATE 100 MG CAPSULE 200 MG PO (08:31)
[2021-10-10] MEDS: PRENATAL VIT,CALC/IRON/FOLIC 1 TABLET 1 TAB PO (08:32)
--- NOTE | 2021-10-12 18:08 | PM.OBDS.1 ---
Discharge Providers Provider Date of admission: 10/08/21 05:43 Discharge Date: 10/10/21 Primary care physician: Saul Michael MD Consults: 10/08/21 10:52 Consult to Business Services Sales Representative Routine Comment: 10/09/21 18:05 Consult to Business Services Sales Representative Routine Comment: Discharge provider: Yoana Avelar MD Summary Hospital Course Date Patient Seen: 10/10/21 Time Patient Seen: 09:30 Diagnoses: 37-1/7 weeks gestation Preeclampsia Previous section Repeat low-transverse section Hospital Course: Patient is a 36 year old 2 para 2 who presented on October 08, 2021 for a scheduled repeat section at 37 weeks gestation due to preeclampsia. She underwent this procedure without complication. Her postoperative course was unremarkable. She was discharged home on postop day # 2 with good pain management, no nausea or vomiting, ambulating without assistance, voiding without the catheter, and tolerating a diet. Peripartum Data Delivery Method: Section Laceration Description: None Episiotomy description: None Procedures: Spinal anesthesia Repeat low-transverse section complications: none 1: Gender: Female Disposition of : home Discharge Diagnosis (1) Status post repeat low transverse section: Status: Acute (2) Hypertension: Status: Acute Problem Details: Non- labile BP, can be 180/120 systolic when stressed. Was not treated with medication by previous primary provider in [place]. Status at Discharge Cognitive/behavioral status at discharge: oriented Functional status at discharge: independent ambulation Overall status at discharge: patient is progressing back to baseline Time Spent with Patient Time attestation: Total time spent providing and/or coordinating discharge services: Time spent: Less than 30 minutes Objective Labs Result Diagrams: 10/09/21 05:35 10/08/21 07:00 Exam Vital Signs (past 8 hours): Oxygen Delivery Method Room Air Narrative Exam Narrative: Generally: Patient is sitting up in bed, no acute distress Lungs: Clear to auscultation bilaterally Cardiovascular: Regular rate and rhythm Fundus: Firm at U -1 Abdomen: Soft and flat. Incision: Clean dry and intact with Aquacel dressing Extremities: 1+ edema, negative [place] Discharge Plan Discharge Plan Patient Disposition: Home Provider Discharge Comment: Patient also to continue her iron supplement Tylenol 650 mg every 6 hours Ibuprofen 600 mg every 6 hours Patient to call with fever, chills, redness or drainage around the incision, or bleeding vaginally more than a pad in an hour Discharge orders & Medications Prescriptions: New oxycodone 5 mg tablet 5 mg PO Q4H PRN (Reason: pain) Qty: 30 0RF labetalol 100 mg tablet 100 mg PO BID Qty: 60 0RF Continued prenat.vits,alvin,kdk-oqrm-znjhq Tablet 1 tab PO DAILY 0RF (DME) Double Electric Breast Pump See Rx Instructions .Route .MEDSUPPLY Qty: 1 0RF Rx Instructions: Pump with supplies Discontinued aspirin 81 mg tablet,chewable 81 mg PO DAILY Qty: 90 0RF Follow up/Referrals: Yoana Avelar MD [Physician] - 1 Week ('s office will call with an appointment for aqucel dressing removal in a week.) Diet/Activity/Treatments Diet: Regular Activity: No heavy lifting Skin/Wound/Dressing Care Report to your healthcare provider any signs of infection, such as:: chills, fever, increased pain, unusual drainage and unusual redness Dressing: Do not remove Visit Report/Discharge Packet Instructions: DI for , DI for Prescription Opioid Use Discharge Data Primary Care Provider: Saul Michael
== END 2021-10-10 14:06 | disposition home or self-care (01) | DRG 788 ==
PROVIDERS: Admitting Provider Obstetrics & Gynecology; PCP Family Medicine; Referring Provider Obstetrics & Gynecology; Visit Provider Obstetrics & Gynecology
PROC: 10D00Z1 Extraction of Products of Conception, Low, Open Approach (ICD-10-PCS; CPT 59514; principal; 2021-10-08 07:45)
DX: O14.94 Unspecified pre-eclampsia, complicating childbirth (principal); Z98.891 History of uterine scar from previous surgery; Z3A.37 37 weeks gestation of pregnancy; Z37.0 Single live birth; Z20.822 Contact with and (suspected) exposure to COVID-19; O99.892 Other specified diseases and conditions complicating childbirth; N73.6 Female pelvic peritoneal adhesions (postinfective)
CPT/HCPCS: 36415; 59050; 59510; 59514; 82570; 84156; 84450; 84550; 85014; 85018; 85025; 86850; 86900; 86901; 87635; C9803; J0690; J1885; J2250; J2274; J2590

== ENCOUNTER 2022-02-22 15:35 | Emergency (ER) | payer OTHER, SELFPAY ==
[2022-02-22 16:25] VITALS: BP 202/116; PULSE 88; RESP 17; TEMP 37.5; O2SAT 99; BMI 30.2
[2022-02-22 16:44] LABS: COVID19 -Nasal RAPID Negative (Negative)
--- NOTE | 2022-02-22 19:50 | PC.NURSE ---
pt aao x 3 resp even and unlabored, no acute distress noted
--- NOTE | 2022-02-22 19:53 | ED.NAVMDI ---
HPI - Nausea/Vomiting/Diarrhea General Chief complaint: Upper Respiratory Symptoms Stated complaint: watery stools since monday Time Seen by Provider: 02/22/22 19:52 Source: patient Mode of arrival: Ambulatory Limitations: no limitations History of Present Illness HPI Narrative: This is a 36-year-old female with history of -induced hypertension who is 4 months who has had fevers which have resolved, nasal congestion, cough, nausea but no vomiting and watery diarrhea which has improved. She states her older daughter had similar symptoms a week before was negative for COVID and she presents for testing today. She also presents with her 4-month-old child with who has been having similar symptoms as well. She notes her blood pressure is elevated today. She was on labetalol until 6 weeks . Patient is post follow-up with her primary care physician regarding blood pressure. She has been taking Mucinex as well as kzsp-hhh-mjgsaad cough and cold medication she does not know if there is any Sudafed in them. Patient otherwise is taking a contraceptive tablet in no other daily medications. Related Data Home Medications Medication Instructions Recorded Confirmed prenat.vits,alvin,ftd-mzxv-wztrp 1 tab PO DAILY 03/19/21 12/02/21 Previous Rx's Medication Instructions Recorded Double Electric Breast Pump #1 ea 07/14/21 norethindrone (contraceptive) 0.35 0.35 mg PO DAILY #28 tab 12/02/21 mg tablet ([facility]) Allergies Allergy/AdvReac Type Severity Reaction Status Date / Time No Known Drug Allergies Allergy Verified 02/22/22 16:28 Review of Systems Review of Systems ROS Unobtainable: All systems reviewed & are unremarkable except as noted in HPI and below Patient History Medical History Hypertension Low back pain (~2013) Neuropathic pain of right hand (~07/2020) Raynaud's disease (~2020) Surgical History History of Family History Mother Rheumatoid arthritis Father Hypertension Grandmother Hypertension Grandfather Medical history unknown Grandmother Medical history unknown Grandfather Alzheimer disease Social History marital status: number of children: 1 household members: spouse and children lives independently: Yes caregiver/support person: No housing: house pets and animals: No 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 ) current occupational exposures/hazards: Yes (Some bleach, but she uses ventilation and gloves.) special jame needs: No seatbelt use: always do you feel safe at home: Yes Smoking Status: Never smoker second hand exposure: Yes ( smokes outside, sometimes she will get drafts of smoke or 3rd hand.) alcohol intake: former (Pre-: rare glass of wine. ) substance use type: does not use during the past year weight has: increased > 10 lbs well-balanced diet: about half the time daily servings fruits/ve-4 (2) caffeine: Yes (1 cup daily. 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 ) frequency: does not exercise duration: other Smoking Status: Never smoker alcohol intake frequency: other Substance Use Type: does not use Exam Narrative Exam Narrative: GEN: well nourished, well appearing female, alert and oriented x 3, patient appears to be in mild distress. HEENT: Atraumatic, pupils are equal round reactive to light, extraocular movements are intact, nares are clear. HEART: Regular rate and rhythm without murmur, clicks, rubs. LUNGS:Lungs clear to auscultation, no wheezes, rales, crackles, chest moves symmetrically ABD:bowel sounds normal, soft, non-tender, no guarding, rebound, rigidity, no masses noted, no hepatosplenomegaly :No CVA tenderness, [male/female exam] MSCL: full range of motion, normal gait NEURO:CN 2-12 intact, sensation normal SKIN: No rash, erythema or other skin changes Initial Vital Signs Initial Vital Signs: Vital Signs Temperature 99.5 F 02/22/22 16:25 Pulse Rate 88 02/22/22 16:25 Respiratory Rate 17 02/22/22 16:25 Blood Pressure 202/116 H 02/22/22 16:25 Pulse Oximetry 99 02/22/22 16:25 Course Orders Ordered: ED Orders 02/22/22 16:17 COVID19 -Nasal RAPID/Pre-Proc Stat Vital Signs Vital signs: Vital Signs - 8 hr 02/22/22 16:25 Temperature 99.5 F Pulse Rate 88 Respiratory Rate 17 Blood Pressure 202/116 H Pulse Oximetry 99 MDM - Nausea/Vomiting/Diarrhea Lab Data Labs: Lab Results 02/22/22 Range/Units 16:17 SARS-CoV-2 (PCR) Negative (Negative) MDM Narrative Medical decision making narrative: This is a healthy 36-year-old female who induced hypertension after labetalol but is hypertensive on arrival here today. She may be taking some qmpg-fkg-yocgetl medications which are increasing her blood pressure and plans to follow-up with her primary care regarding her blood pressure already. Patient is negative for COVID likely has upper respiratory or/viral infection causing her and her children symptoms. Well-appearing with plan for conservative measures and symptomatic management. Discharge Plan Departure Patient Disposition: Home Clinical Impression: Upper respiratory infection Instructions: DI for Viral Upper Respiratory Infection -- Adult Activity Restrictions/Additional Instructions: Follow-up with your primary care physician for recheck regarding your blood pressure. Avoid medications ksir-bbh-zupztpt with Sudafed. These can elevate your blood pressure. Please return for rapidly worsening symptoms, chest pain, shortness of breath, passing out, persistent vomiting, black or bloody stools or other new or concerning symptoms. Prescriptions: No Action prenat.vits,alvin,snk-igsb-vrmtb Tablet 1 tab PO DAILY 0RF (DME) Double Electric Breast Pump See Rx Instructions .Route .MEDSUPPLY Qty: 1 0RF Rx Instructions: Pump with supplies norethindrone (contraceptive) [[facility]] 0.35 mg tablet 0.35 mg PO DAILY Qty: 28 11RF Referrals: Saul Michael MD [Primary Care Provider] -
[2022-02-22 20:26] VITALS: BP 183/99; PULSE 80; RESP 18; O2SAT 98
== END 2022-02-22 20:36 | disposition home or self-care (01) ==
PROVIDERS: Emergency Medicine; Emergency Provider Emergency Medicine; PCP Family Medicine
DX: J06.9 Acute upper respiratory infection, unspecified (principal); Z20.822 Contact with and (suspected) exposure to COVID-19
CPT/HCPCS: 87635; 99281; 99282; C9803

== ENCOUNTER → 2025-09-19 07:43 | Outpatient (CLI) | payer OTHER, SELFPAY ==
--- NOTE | 2025-09-19 07:44 | DI.US.S_ITS ---
PROCEDURE: US ABDOMEN LIMITED INDICATIONS: INCREASED AST/ALT TECHNIQUE: Real-time scanning was performed of the abdominal and retroperitoneal organs, with image documentation. COMPARISON: None. FINDINGS: Liver: Liver is normal in size. Increased liver parenchymal echotexture. No discrete hepatic lesion. Gallbladder: No gallstones. No gallbladder wall thickening or pericholecystic fluid. No sonographic Allison's sign. Biliary ducts: Intrahepatic bile ducts are non-dilated. Extrahepatic bile duct caliber measures 3.6 mm. Normal is 6-7 mm or less in diameter, or 10 mm or less post-cholecystectomy. Pancreas: Visualized portions of the pancreas are sonographically normal. Miscellaneous: No free abdominal fluid. IMPRESSION: 1. Hepatic steatosis, no discrete hepatic lesion. 2. Rest of the exam is unremarkable. Dictated by: Devaughn Walker M.D. on 09/19/2025 at 13:39 Approved by: Devaughn Walker M.D. on 09/19/2025 at 13:39
== END ==
LOC: US 07:44
PROVIDERS: PCP Nurse Practitioner Family; Referring Provider Nurse Practitioner Family; Visit Provider Nurse Practitioner Family
DX: K76.0 Fatty (change of) liver, not elsewhere classified (principal); R74.8 Abnormal levels of other serum enzymes
CPT/HCPCS: 76705